=== PATIENT | male | born 1990 | race Caucasian/White ===

== ENCOUNTER 2019-02-13 17:35 | Emergency (ER) | payer MEDICARE, MEDICAID ==
--- NOTE | 2019-02-13 18:06 | Emergency Department Record ---
Anxiety - General Chief Complaint: Anxiety Stated Complaint: RACING HEART/LOST SCRIPT Time Seen by Provider: 02/13/19 18:05 Source: Patient Mode of Arrival: Ambulatory Limitations: No limitations - History of Present Illness Initial Comments: 28 yo male presents with a feeling of heart racing and anxiety. He reports this has been ongoing for about 2months. At times his heart feels like it is going fast. He reports he was evaluated at [facility] 2 months ago. He reports that he was told he had a healthy heart. He also reports he normally takes vistaril for anxiety. He has run out of his normal prescription. No shortness of breath. No fever. No cough. No headaches, vision changes or syncope. No known underlying cardiac disease. He smokes occasional cigarettes and marijuana. He denies drugs or alcohol. He has a long history of anxiety and follows at [facility]. MD Complaint: Heart racing Symptoms: Palpitations, Other (anxious) Previous History of Same: Yes Severity: Moderate Quality: Intermittant Provoking factors: Other (anxiety) Improves With: Medication Worsens With: Other (running out of his medication) Associated symptoms: Denies other symptoms - Related Data Home Medications: Previous Rx's Medication Instructions Recorded Hydroxyzine Pamoate [Vistaril] 50 mg PO DAILY PRN #14 capsule 02/13/19 Review of Systems Constitutional: Denies: Chills, Fever, Malaise, Weakness Eyes: Denies: Eye discharge, Vision change ENT: Denies: Congestion, Throat pain Respiratory: Denies: Cough, Dyspnea, Stridor, Wheezes Cardiovascular: Reports: Palpitations. Denies: Chest pain, Edema, Murmurs, Rheumatic Fever, Syncope Endocrine: Denies: Fatigue, Polydipsia, Polyuria Gastrointestinal: Denies: Abdominal pain, Diarrhea, Nausea, Vomiting Genitourinary: Denies: Dysuria, Frequency, Hematuria Musculoskeletal: Denies: Arthralgia, Back pain, Myalgia Skin: Denies: Bruising, Change in color, Rash Neurological: Denies: Abnormal gait, Confusion, Headache, Numbness, Paresthesias, Seizure, Tingling, Tremors, Vertigo, Weakness Psychiatric: Reports: Anxiety. Denies: Auditory hallucinations, Depression, Homicidal thoughts, Suicidal thoughts, Visual hallucinations Hematological/Lymphatic: Denies: Anemia, Blood Clots, Easy bleeding, Easy bruising, Swollen glands Physical Exam - General General Appearance: Alert, Oriented x3, Cooperative, No acute distress Limitations: No limitations - Head Head exam: Atraumatic, Normal inspection - Eye Eye exam: Normal appearance, PERRL, EOMI. negative: Conjunctival injection, Nystagmus, Scleral icterus - ENT ENT exam: Normal exam, Mucous membranes moist, Normal orophraynx. negative: Mu cous membranes dry Ear exam: Normal external inspection Nasal Exam: Normal inspection Mouth exam: Normal external inspection - Neck Neck exam: Normal inspection, Full ROM. negative: Lymphadenopathy, Thyromegaly - Respiratory Respiratory exam: Normal lung sounds bilaterally. negative: Accessory muscle use, Decreased breath sounds, Prolonged expiratory, Respiratory distress, Rhonchi, Stridor, Wheezes - Cardiovascular Cardiovascular Exam: Regular rate, Normal rhythm, Normal heart sounds. negative: Bradycardia, Diastolic murmur, Irregular rhythm, Systolic murmur, Tachycardia Peripheral Pulses: 2+: Radial (R), Radial (L) - GI/Abdominal GI/Abdominal exam: Soft. negative: Tenderness - Rectal Rectal exam: Deferred - exam: Deferred - Extremities Extremities exam: negative: Calf tenderness, Pedal edema - Back Back exam: Reports: Full ROM - Neurological Neurological exam: Alert, Normal gait, Oriented X3. negative: Abnormal gait, Altered - Psychiatric Psychiatric exam: Normal affect, Normal mood. negative: Agitated, Anxious - Skin Skin exam: Dry, Intact, Normal color, Warm Course - Reevaluation(s) Reevaluation #1: 02/13/19 18:23 EKG 18:17 Rate 116 Rhythm sinus tachycardia [place] normal Intervals normal ST normal Normal except rate 02/13/19 19:07 The CBC and BMP are normal The patient's main symptoms are consistent with his long standing anxiety He will be given a limited amount of Vistaril for home He is to call [facility] for his ongoing anxiety care 02/13/19 19:15 TSH is normal DC home 02/13/19 19:26 HR down to 101. Patient relaxed He was given information to call [facility] in [place] as well since he lives closer to [place] than [place] Medical Decision Making - Lab Data Result diagrams: 02/13/19 18:35 02/13/19 18:37 Disposition Disposition: Discharge Clinical Impression: Anxiety, Palpitations Disposition: Home, Self-Care Condition: (1) Good Instructions: Heart Palpitations (ED), Anxiety (ED) Additional Instructions: Call for a new family doctor tomorrow Return or be seen if worse, fever, cough, short of breath Prescriptions: Hydroxyzine Pamoate [Vistaril] 50 mg PO DAILY PRN #14 capsule PRN Reason: Anxiety Forms: Patient Portal Access Time of Disposition: 18:23 Quality - Quality Measures Quality Measures: N/A - Blood Pressure Screening Does Patient Have Any of the Following: No Blood Pressure Classification: Pre-Hypertensive BP Reading Systolic Measurement: 135 Diastolic Measurement: 88 Screening for High Blood Pressure: < Pre-Hypertensive BP, F/U Documented > [G8950] Pre-Hypertensive Follow-up Interventions: Referral to alternative/primary care provider.
[2019-02-13] MEDS ORDERED: HYDROXYZINE PAMOATE 25 MG CAPSULE PO ONE (18:11)
[2019-02-13 18:46] LABS: ABSOLUTE NEUTROPHIL COUNT 5.58; BASO % 0.3 % (0-6); EOS % 1.2 % (0-6); GRAN % 72.3 % (47-80); HEMATOCRIT 43.8 % (42.0-52.0); HEMOGLOBIN 14.6 gm/dl (14.0-18.0); LYMPH % 21.9 % (16-45); MEAN CELL VOLUME 81.7 fl (81-97); MEAN CORPUSCULAR HEMOGLOBIN 27.2 pg (27-33); MEAN CORPUSCULAR HGB CONC 33.3 g/dl (32-36); MEAN PLATELET VOLUME 8.6 fl (7.4-10.4); MONO % 4.3 % (0-9); PLATELET COUNT 404 K/uL (130-400); RED BLOOD COUNT 5.36 M/uL (4.40-5.70); RED CELL DISTRIBUTION WIDTH 12.8 % (11.5-14.5); WHITE BLOOD COUNT W/O DIFF 7.7 K/uL (4.2-12.2)
[2019-02-13 18:55] LABS: BLOOD UREA NITROGEN 11 mg/dL (6-20); CREATININE 0.8 mg/dL (0.7-1.2); EST GLOMERULAR FILTRATION RATE > 60 mL/min
[2019-02-13 18:58] LABS: GLUCOSE,RANDOM 122 mg/dL (74-109)
[2019-02-13 19:11] LABS: THYROID STIMULATING HORMONE 0.74 uIU/mL (0.270-4.20)
== END 2019-02-13 19:25 | disposition home or self-care (01) ==
LOC: ER 17:35
DX: R00.2 Palpitations (principal); F41.9 Anxiety disorder, unspecified; F17.210 Nicotine dependence, cigarettes, uncomplicated
CPT/HCPCS: 80048; 84443; 85025; 93005; 93010; 99284

== ENCOUNTER 2019-03-29 23:46 | Emergency (ER) | payer MEDICARE, MEDICAID ==
--- NOTE | 2019-03-30 00:02 | Emergency Department Record ---
Anxiety - General Chief Complaint: Anxiety Stated Complaint: ANXIETY Time Seen by Provider: 03/29/19 23:56 Source: Patient Mode of Arrival: Ambulatory Limitations: No limitations - History of Present Illness Initial Comments: 28 yo male with a history of schizo-affective disorder presents to ED for evaluation of feeling anxious. Patient reports a sense of doom, feeling like his heart is racing, and he reports thoughts of fear. Patient denies SI/HI, reports that his symptoms have been intermittent for 2 months. Patient reports taking Buspar for hi9s symptoms prior to arrival. Patient denies chest discomfort symptoms, difficulty in breathing, or shortness of breath symptoms. Patient reports that his symptoms are now improving. MD Complaint: Anxiety Onset/Timin -: Hour(s) Symptoms: Palpitations Place: Home Previous History of Same: Yes Severity: Moderate Quality: Intermittant Provoking factors: None known Improves With: Nothing Worsens With: Nothing Associated symptoms: Denies other symptoms - Related Data Home Medications: Home Medications Medication Instructions Recorded Confirmed Last Taken Aripiprazole 10 mg PO DAILY 03/29/19 03/30/19 03/30/19 Buspirone HCl [Buspar] 15 mg PO DAILY 03/29/19 03/30/19 03/30/19 Review of Systems Constitutional: Denies: Chills, Fever, Malaise, Night sweats Eyes: Denies: Eye discharge, Eye pain ENT: Denies: Congestion, Ear pain, Epistaxis Respiratory: Denies: Cough, Dyspnea Cardiovascular: Reports: Palpitations. Denies: Chest pain, Dyspnea on exertion Endocrine: Denies: Fatigue, Heat or cold intolerance Gastrointestinal: Denies: Abdominal pain, Nausea, Vomiting Genitourinary: Denies: Incontinence, Retention Musculoskeletal: Denies: Arthralgia, Back pain Skin: Denies: Bruising, Change in color Neurological: Denies: Abnormal gait, Confusion, Headache, Seizure Psychiatric: Reports: Anxiety Hematological/Lymphatic: Denies: Anemia, Blood Clots Past Medical History - SOCIAL HISTORY Smoking Status: Current every day smoker Drug Use: Occasional Drug Use Detail:: Methamphetamine Physical Exam - General General Appearance: Alert, Oriented x3, Cooperative, No acute distress, Other (Patient appears calm on examination, reports "my pulse is always 105-110".) Limitations: No limitations - Head Head exam: Atraumatic, Normocephalic, Normal inspection Head exam detail: negative: Abrasion, Contusion, Aleman's sign, General te nderness, Hematoma, Laceration - Eye Eye exam: Normal appearance. negative: Conjunctival injection, Periorbital swelling, Periorbital tenderness, Scleral icterus - ENT Ear exam: negative: Auricular hematoma, Auricular trauma Nasal Exam: negative: Active bleeding, Discharge, Dried blood, Foreign body Mouth exam: negative: Drooling, Laceration, Muffled voice, Tongue elevation - Neck Neck exam: Normal inspection. negative: Meningismus, Tenderness - Respiratory Respiratory exam: Normal lung sounds bilaterally. negative: Rales, Respiratory distress, Rhonchi, Stridor - Cardiovascular Cardiovascular Exam: Normal rhythm, Normal heart sounds, Tachycardia - GI/Abdominal GI/Abdominal exam: Soft. negative: Rebound, Rigid, Tenderness - Rectal Rectal exam: Deferred - exam: Deferred - Extremities Extremities exam: Normal inspection. negative: Pedal edema, Tenderness - Back Back exam: Denies: CVA tenderness (R), CVA tenderness (L) - Neurological Neurological exam: Alert, Normal gait, Oriented X3 - Psychiatric Psychiatric exam: Anxious - Skin Skin exam: Normal color. negative: Abrasion Type of lesion: negative: abrasion Course Vital Signs 03/29/19 23:52 Temperature 98.6 F Pulse Rate [ 120 H Pulse Ox Probe] Respiratory 20 Rate Blood Pressure 135/96 [Left Arm] Pulse Ox 99 - Reevaluation(s) Reevaluation #1: 03/30/19 00:04 EKG: Sinus tachycardia 107 Normal axis, normal intervals Unchanged from 02/13/19 Reevaluation #2: 03/30/19 00:21 Patient was reassessed, reports that he is feeling much improved. Pulse improved to 102. Patient was counseled to follow-up with [facility] for further evaluation of his anxiety symptoms. Disposition Disposition: Discharge Clinical Impression: Generalized anxiety disorder Disposition: Home, Self-Care Condition: (2) Stable Instructions: Generalized Anxiety Disorder (ED) Additional Instructions: Return to ED if your symptoms worsen or if you have any concerns. Continue your home medications as directed. Follow-up with your psychiatrist in 3-5 days as directed. Forms: Patient Portal Access Time of Disposition: 00:22 Quality - Quality Measures Quality Measures: N/A - Blood Pressure Screening Does Patient Have Any of the Following: No Blood Pressure Classification: Hypertensive Reading Systolic Measurement: 135 Diastolic Measurement: 96 Screening for High Blood Pressure: < First Hypertensive BP, F/U Documented > [G8950] First Hypertensive Follow-up Interventions: Referral to alternative/primary care provider.
== END 2019-03-30 00:32 | disposition home or self-care (01) ==
LOC: ER 23:46
DX: F41.1 Generalized anxiety disorder (principal); F17.210 Nicotine dependence, cigarettes, uncomplicated; F25.9 Schizoaffective disorder, unspecified; R07.9 Chest pain, unspecified
CPT/HCPCS: 93005; 93010; 99284